=== PATIENT | female | born 1940 | race Two or more races ===

== ENCOUNTER 2023-02-09 16:15 | Inpatient (IN) ==
--- NOTE | 2023-02-09 16:21 | ED Triage Note ---
Date of Service February 09, 2023 History of Present Illness This patient was briefly evaluated while in triage. An abbreviated physical exam was performed. This patient is a 83-year-old Female who presents to the ED for evaluation of []. yesterday-cough and congestion no fevers concerns for wheezing today-"it settled in her chest" vaccinated for flu and covid no testing was visiting sister in [place] on Monday Physical Exam GENERAL: NAD CARDIOVASCULAR: RRR RESPIRATORY: few scattered wheezes Initial orders for labs and / or imaging were placed and patient was placed in the waiting area until a bed is available. Please see further documentation for the full ED course.
[2023-02-09] MEDS ORDERED: ALBUT/IPRATROP 3MG/0.5MG NEB 3 ML VIAL NEB STA (17:25)
--- NOTE | 2023-02-09 17:25 | Emergency Department Note ---
History of Present Illness General Chief complaint: Congestion Stated complaint: COUGH,CONGESTION,WHEEZING, Time Seen by Provider: 02/09/23 17:09 History of Present Illness Provider complaint: Cough congestion wheezing 83-year-old female presents emergency department for cough congestion wheezing. Son at bedside reports symptoms began yesterday. No fevers. No hemoptysis. Mild chest pain difficulty breathing. No chest pressure. No recent travel. No exogenous hormone usage. No history of CHF. No recent trauma or surgeries. Home Medications Medication Instructions Recorded Confirmed Type aspirin 81 mg tablet,delayed 81 mg PO QAM 02/09/23 02/09/23 History release atorvastatin 10 mg tablet 10 mg PO HS 02/09/23 02/09/23 History calcium carbonate 600 mg-vitamin 1 tab PO BID 02/09/23 02/09/23 History D3 10 mcg (400 unit) tablet (Calcium 600 + D(3)) carvedilol 12.5 mg tablet 12.5 mg PO BIDM 02/09/23 02/09/23 History denosumab 60 mg/mL subcutaneous 60 mg subcut .[id number] 02/09/23 02/09/23 History syringe (Prolia) diltiazem HCl 60 mg tablet 60 mg PO BID 02/09/23 02/09/23 History dorzolamide 22.3 mg-timolol 6.8 1 drp OPB BID 02/09/23 02/09/23 History mg/mL eye drops escitalopram oxalate 10 mg tablet 10 mg PO QAM 02/09/23 02/09/23 History hydrochlorothiazide 25 mg tablet 25 mg PO QAM 02/09/23 02/09/23 History latanoprost 0.005 % eye drops 1 drp OPB HS 02/09/23 02/09/23 History losartan 100 mg tablet 100 mg PO HS 02/09/23 02/09/23 History metformin 500 mg tablet See Rx Instructions .Route .COMPLEX 02/09/23 02/09/23 History omeprazole 20 mg capsule,delayed 20 mg PO QAM 02/09/23 02/09/23 History release potassium chloride 10 mEq 10 meq PO BID 02/09/23 02/09/23 History tablet,extended release Allergies Allergy/AdvReac Type Severity Reaction Status Date / Time Penicillins Allergy Intermediate Hives Verified 02/09/23 19:03 Past Med/Surg History Medical History Anxiety GERD (gastroesophageal reflux disease) Hyperlipidemia Hypertension associated with type 2 diabetes mellitus No pertinent family history Type 2 diabetes mellitus Surgical History No pertinent past surgical history Social History Smoking Status: Never smoker Hx Alcohol Use: Yes Alcohol type: wine Hx Substance Use: No Preferred Language: Occitan [employer] As[employer]er Required: No Beliefs That Will Affect Care: None Current Living Situation: Family Current Living Situation Comment: Lives with daughter Feels Safe at Home: Yes Assistive Devices: Denture - Upper, Denture - Lower and Glasses Physical Exam Vital Signs Vital Signs - 24 hr 02/09/23 16:19 02/09/23 17:33 02/09/23 17:48 Temperature 36.8 C Temperature Source Temporal Artery Scan Pulse Rate 83 80 Pulse Rate [Apical] 88 Pulse Rhythm Regular Pulse Rhythm [Apical] Regular Respiratory Rate 20 18 Respiratory Effort / Characteristics Non-Labored Spontaneous Non-Labored Spontaneous Respiratory Depth Normal Normal Respiratory Pattern Regular Blood Pressure 228/109 H Blood Pressure [Right Arm] 236/87 H Blood Pressure Mean 148 Blood Pressure Mean [Right Arm] 136 Blood Pressure Position [Right Arm] Lying Pulse Oximetry 97 95 Oxygen Delivery Method Room Air Sepsis Recent Fever Within 48 Hours No Sepsis New/Unexplained Change in Mental Status No Sepsis Action Taken by Nursing No Action Required Physical Exam GENERAL: She is oriented to person, place, and time. She appears well-developed and well-nourished. HENT: Exam performed. -Head: Normocephalic and atraumatic. -Right Ear: External ear normal. No mastoid erythema -Left Ear: External ear normal. No mastoid erythema EYES: Conjunctivae and EOM are normal. Right eye exhibits no discharge. Left eye exhibits no discharge. No scleral icterus. NECK: Normal range of motion. Neck supple. No JVD present. No rigidity. No tracheal deviation and normal range of motion present. CV: Normal rate, regular rhythm, normal heart sounds and intact distal pulses. Palpable radial pulses bue. PULM/CHEST: Wheezing bilaterally right-sided chest greater than left-sided chest ABD: The abdomen is soft. She has no distension. There is no tenderness. There is no rebound, no guarding. LYMPH: No cervical adenopathy. NEURO: Motor and sensation grossly intact. SKIN: Skin is warm and dry. She is not diaphoretic. PSYCH: She has a normal mood and affect. Behavior is normal. Judgment and thought content normal. Course Course 1708: The patient was evaluated in room A9. A complete history and physical exam was performed Cardiac monitoring: An order was placed for continuous cardiac monitoring. The monitor shows a rate of 80 with sinus rhythm interpreted by me 1930: Vital signs stable. Status post 1 DuoNeb the patient is still having wheezing. Labs show potassium of 3. Imaging shows fluid overloaded. BNP elevated. Patient reportedly has no history of CHF per the son at bedside. Patient will be admitted for CHF new onset Lasix 40 mg ordered for the patient after potassium was repleted in the emergency department. Administered Medications Atorvastatin Calcium (Atorvastatin 10 Mg Tab) 10 mg PO HS EDUARD Stop: 03/11/23 21:57 Last Admin: 02/09/23 22:43 Dose: 10 mg Documented By: CHARO Calcium/Vitamin D (Calcium 600mg + Vit D 400 Iu Tab) 1 tab PO BID EDUARD Stop: 03/11/23 21:57 Last Admin: 02/09/23 22:43 Dose: 1 tab Documented By: CHARO Losartan Potassium (Losartan Potassium 50 Mg Tab) 100 mg PO HS EDUARD Stop: 03/11/23 21:57 Last Admin: 02/09/23 22:36 Dose: 100 mg Documented By: CHARO Discontinued Medications Albuterol (Albut/Ipratrop 3mg/0.5mg Neb 3 Ml Vial) 3 ml NEB NOW STA; Protocol Stop: 02/09/23 17:26 Last Admin: 02/09/23 17:49 Dose: 3 ml Documented By: YULISA Carvedilol (Carvedilol 12.5 Mg Tab) 12.5 mg PO NOW ONE Stop: 02/09/23 20:38 Last Admin: 02/09/23 20:59 Dose: 12.5 mg Documented By: KAIDEN Diltiazem HCl (Diltiazem Hcl 60 Mg Tab) 60 mg PO NOW STA Stop: 02/09/23 20:46 Last Admin: 02/09/23 21:34 Dose: 60 mg Documented By: KAIDEN Furosemide (Furosemide 40 Mg/4 Ml Vial) 40 mg IV ONE ONE Stop: 02/09/23 19:27 Last Admin: 02/09/23 19:42 Dose: 40 mg Documented By: KAIDEN Sodium Nitroprusside 50 mg/ (Dextrose) 502 mls @ 8.66 mls/hr IV .Q24H EDUARD; Protocol Stop: 03/11/23 21:44 Last Admin: 02/09/23 22:56 Dose: Not Given Documented By: ARLET Losartan Potassium (Losartan Potassium 50 Mg Tab) 100 mg PO NOW STA Stop: 02/09/23 20:18 Last Admin: 02/09/23 20:59 Dose: Not Given Documented By: KAIDEN Nitroglycerin (Nitroglycerin 2% Ointment 30gm Tube) 0.5 inch EXT NOW ONE Stop: 02/09/23 22:26 Last Admin: 02/09/23 22:43 Dose: 0.5 inch Documented By: CHARO Potassium Chloride (Potassium Chloride 10 Meq Tabcr) 40 meq PO NOW STA Stop: 02/09/23 19:27 Last Admin: 02/09/23 19:42 Dose: 40 meq Documented By: KAIDEN Medical Decision Making Laboratory Data Attestation: I reviewed the patient's lab results. 02/09/23 17:33 02/09/23 17:34 Lab Results 02/09/23 02/09/23 02/09/23 Range/Units 17:33 17:33 17:33 WBC 9.94 (4.8-10.8) K/ul RBC 4.82 (4.20-5.40) M/uL Hgb 12.6 (12.0-16.0) g/dl Hct 37.7 (37.0-47.0) % MCV 78.2 L (80.0-100.0) fL MCH 26.1 (25.0-34.0) pg MCHC 33.4 (32.0-36.0) g/dL RDW Std Deviation 45.1 (36.4-46.3) fL RDW Coeff of Alanna 16.0 H (11.5-14.5) % Plt Count 194 (130-400) K/uL MPV 13.0 H (9.4-12.4) fL Immature Gran % (Auto) 0.3 % Neut % (Auto) 69.1 % Lymph % (Auto) 18.0 % [place] % (Auto) 10.8 % Eos % (Auto) 1.3 % Baso % (Auto) 0.5 % Neut # (Auto) 6.87 H (1.40-6.50) K/uL Lymph # (Auto) 1.79 (1.2-3.4) K/uL [place] # (Auto) 1.07 H (0.11-0.59) K/uL Eos # (Auto) 0.13 (0-0.50) K/uL Baso # (Auto) 0.05 (0-0.2) K/uL Immature Gran # (Auto) 0.03 (0.01-0.20) K/uL D-Dimer (0-500) ug/L FEU VBG pH (7.36-7.41) VBG pCO2 (38-50) mmHg VBG pO2 mmHg VBG HCO3 mmol/L VBG O2 Saturation % VBG Base Excess mEq/L Sodium (136-145) mmol/L Potassium (3.5-5.1) mmol/L Chloride (98-107) mmol/L Carbon Dioxide (21-32) mmol/L Anion Gap (3-11) BUN (6-23) mg/dl Creatinine (0.6-1.2) mg/dl Est Cr Clr Drug Dosing ml/min Est GFR ( Amer) ml/min Est GFR (Non-Af Amer) ml/min BUN/Creatinine Ratio (10-20) Glucose (70-99(Fasting)) mg/dl Calcium (8.6-10.3) mg/dl Phosphorus (2.5-4.9) mg/dl Magnesium (1.7-2.4) mg/dl Troponin I High Sens Cancelled B-Natriuretic Peptide 141 H (0-100) pg/ml POC Urine pH (4.5-7.5) POC Urine Protein (Negative) POC Ur Glucose (UA) (Normal) POC Urine Ketones (Negative) POC Urine Blood (Negative) POC Urine Nitrite (Negative) POC Urine Bilirubin (Negative) POC Urine Urobilinogen (Normal) POC U Leukocyte Esteras (Negative) SARS-CoV-2 (PCR) (Negative) Influenza Type A (PCR) (Neg) Influenza Type B (PCR) (Neg) RSV (RT-PCR) (Neg) 02/09/23 02/09/23 02/09/23 Range/Units 17:34 17:34 17:51 WBC (4.8-10.8) K/ul RBC (4.20-5.40) M/uL Hgb (12.0-16.0) g/dl Hct (37.0-47.0) % MCV (80.0-100.0) fL MCH (25.0-34.0) pg MCHC (32.0-36.0) g/dL RDW Std Deviation (36.4-46.3) fL RDW Coeff of Alanna (11.5-14.5) % Plt Count (130-400) K/uL MPV (9.4-12.4) fL Immature Gran % (Auto) % Neut % (Auto) % Lymph % (Auto) % [place] % (Auto) % Eos % (Auto) % Baso % (Auto) % Neut # (Auto) (1.40-6.50) K/uL Lymph # (Auto) (1.2-3.4) K/uL [place] # (Auto) (0.11-0.59) K/uL Eos # (Auto) (0-0.50) K/uL Baso # (Auto) (0-0.2) K/uL Immature Gran # (Auto) (0.01-0.20) K/uL D-Dimer 370 (0-500) ug/L FEU VBG pH 7.46 H (7.36-7.41) VBG pCO2 48 (38-50) mmHg VBG pO2 31 mmHg VBG HCO3 34 mmol/L VBG O2 Saturation < 60.0 % VBG Base Excess 8.8 mEq/L Sodium 138 (136-145) mmol/L Potassium 3.0 L (3.5-5.1) mmol/L Chloride 96 L (98-107) mmol/L Carbon Dioxide 32 (21-32) mmol/L Anion Gap 10 (3-11) BUN 11 (6-23) mg/dl Creatinine 0.61 (0.6-1.2) mg/dl Est Cr Clr Drug Dosing 53.5 ml/min Est GFR ( Amer) 95.8 ml/min Est GFR (Non-Af Amer) 82.7 ml/min BUN/Creatinine Ratio 18.0 (10-20) Glucose 156 H (70-99(Fasting)) mg/dl Calcium 9.4 (8.6-10.3) mg/dl Phosphorus 2.4 L (2.5-4.9) mg/dl Magnesium 1.4 L (1.7-2.4) mg/dl Troponin I High Sens 8.8 B-Natriuretic Peptide (0-100) pg/ml POC Urine pH (4.5-7.5) POC Urine Protein (Negative) POC Ur Glucose (UA) (Normal) POC Urine Ketones (Negative) POC Urine Blood (Negative) POC Urine Nitrite (Negative) POC Urine Bilirubin (Negative) POC Urine Urobilinogen (Normal) POC U Leukocyte Esteras (Negative) SARS-CoV-2 (PCR) (Negative) Influenza Type A (PCR) (Neg) Influenza Type B (PCR) (Neg) RSV (RT-PCR) (Neg) 02/09/23 02/09/23 02/09/23 Range/Units 17:53 18:09 20:15 WBC (4.8-10.8) K/ul RBC (4.20-5.40) M/uL Hgb (12.0-16.0) g/dl Hct (37.0-47.0) % MCV (80.0-100.0) fL MCH (25.0-34.0) pg MCHC (32.0-36.0) g/dL RDW Std Deviation (36.4-46.3) fL RDW Coeff of Alanna (11.5-14.5) % Plt Count (130-400) K/uL MPV (9.4-12.4) fL Immature Gran % (Auto) % Neut % (Auto) % Lymph % (Auto) % [place] % (Auto) % Eos % (Auto) % Baso % (Auto) % Neut # (Auto) (1.40-6.50) K/uL Lymph # (Auto) (1.2-3.4) K/uL [place] # (Auto) (0.11-0.59) K/uL Eos # (Auto) (0-0.50) K/uL Baso # (Auto) (0-0.2) K/uL Immature Gran # (Auto) (0.01-0.20) K/uL D-Dimer (0-500) ug/L FEU VBG pH (7.36-7.41) VBG pCO2 (38-50) mmHg VBG pO2 mmHg VBG HCO3 mmol/L VBG O2 Saturation % VBG Base Excess mEq/L Sodium (136-145) mmol/L Potassium (3.5-5.1) mmol/L Chloride (98-107) mmol/L Carbon Dioxide (21-32) mmol/L Anion Gap (3-11) BUN (6-23) mg/dl Creatinine (0.6-1.2) mg/dl Est Cr Clr Drug Dosing ml/min Est GFR ( Amer) ml/min Est GFR (Non-Af Amer) ml/min BUN/Creatinine Ratio (10-20) Glucose (70-99(Fasting)) mg/dl Calcium (8.6-10.3) mg/dl Phosphorus Cancelled (2.5-4.9) mg/dl Magnesium Cancelled (1.7-2.4) mg/dl Troponin I High Sens B-Natriuretic Peptide (0-100) pg/ml POC Urine pH 8 H (4.5-7.5) POC Urine Protein 3+ H (Negative) POC Ur Glucose (UA) Normal (Normal) POC Urine Ketones Negative (Negative) POC Urine Blood Negative (Negative) POC Urine Nitrite Negative (Negative) POC Urine Bilirubin Negative (Negative) POC Urine Urobilinogen Normal (Normal) POC U Leukocyte Esteras 1+ H (Negative) SARS-CoV-2 (PCR) NEGATIVE (Negative) Influenza Type A (PCR) Negative (Neg) Influenza Type B (PCR) Negative (Neg) RSV (RT-PCR) Negative (Neg) Imaging Data Attestation: I personally reviewed and interpreted this imaging study as follows: My Impression: Cardiomegaly with cephalization Radiologist's Impression: Chest X-Ray 02/09/23 16:22 XR chest 1V portable HISTORY: 83 years-old Female cough and sheezing acute cough COMPARISON: None TECHNIQUE: AP view of the chest FINDINGS: Cardiac silhouette is enlarged. Pulmonary vascular congestion. Atherosclerosis of the aorta. No pneumothorax, large pleural effusion or overt pulmonary edema. Degenerative changes of the shoulders and spine. IMPRESSION: Cardiomegaly with pulmonary vascular congestion. ACT 112: Negative or not required by law. The above report was generated using voice recognition software. It may contain grammatical, syntax or spelling errors. Electronically signed by: Arnol Gonzalez M.D. 02/09/2023 5:23 PM ECG Data Attestation: I personally reviewed and interpreted this ECG as follows: Additional Comments: EKG #1 at 1722: Sinus rhythm with a rate of 83. NE 232 QRS 126 QTc 491. Right bundle branch block present. EKG #2 at 1747: Sinus rhythm with rate of 84. NE 208 QRS 124 QTc 501. Right bundle branch block present. No significant change from the EKG at 1722 MDM Narrative 1709: The patient was evaluated in room A9. A complete history and physical exam was performed Cardiac monitoring: An order was placed for continuous cardiac monitoring. The monitor shows a rate of 80 with sinus rhythm interpreted by me 1930: Vital signs stable. Status post 1 DuoNeb the patient is still having wheezing. Labs show potassium of 3. Imaging shows fluid overloaded. BNP elevated. Patient reportedly has no history of CHF per the son at bedside. Patient will be admitted for CHF new onset Lasix 40 mg ordered for the patient after potassium was repleted in the emergency department. Impression & Plan CHF (congestive heart failure) Discharge Plan Visit Data Chief Complaint: Congestion Stated Complaint: COUGH,CONGESTION,WHEEZING, ED Provider: John Paul Amaya Discharge Problem: CHF (congestive heart failure) Patient Disposition: Admitted As Inpatient Discharge Instructions Interventions: ED Discharge Assessment Last Done: 02/09/23 22:05
--- NOTE | 2023-02-09 17:25 | XRay Report ---
XR chest 1V portable HISTORY: 83 years-old Female cough and sheezing acute cough COMPARISON: None TECHNIQUE: AP view of the chest FINDINGS: Cardiac silhouette is enlarged. Pulmonary vascular congestion. Atherosclerosis of the aorta. No pneum othorax, large pleural effusion or overt pulmonary edema. Degenerative changes of the shoulders and s pine. IMPRESSION: Cardiomegaly with pulmonary vascular congestion. ACT 112: Negative or not required by law. The above report was generated using voice recognition software. It may contain grammatical, syntax o r spelling errors. Electronically signed by: Arnol Gonzalez M.D. 02/09/2023 5:23 PM
[2023-02-09 18:09] LABS: Base Excess VBG 8.8 mEq/L; HCO3 VBG 34 mmol/L; Oxygen Saturation VBG < 60.0 %; PCO2 VBG 48 mmHg (38-50); PO2 VBG 31 mmHg; pH VBG 7.46 (7.36-7.41)
[2023-02-09 18:18] LABS: POC Urine Bilirubin Negative (Negative); POC Urine Blood Negative (Negative); POC Urine Glucose Normal (Normal); POC Urine Ketones Negative (Negative); POC Urine Leukocytes 1+ (Negative); POC Urine Nitrite Negative (Negative); POC Urine Protein 3+ (Negative); POC Urine Urobilinogen Normal (Normal); POC Urine pH 8 (4.5-7.5)
[2023-02-09 18:19] LABS: Calcium 9.4 mg/dl (8.6-10.3)
[2023-02-09 18:24] LABS: Creatinine Clr Calc Pharmacy 53.5 ml/min; Est GFR (African American) 95.8 ml/min; Est GFR (Non-African American) 82.7 ml/min
[2023-02-09 18:29] LABS: Troponin I High Sensitivity 8.8 pg/ml (0-14)
[2023-02-09 18:39] LABS: Basophils # (auto) 0.05 K/uL (0-0.2); Basophils % (auto) 0.5 %; Eosinophils # (auto) 0.13 K/uL (0-0.50); Eosinophils % (auto) 1.3 %; Hematocrit (blood only) 37.7 % (37.0-47.0); Hemoglobin 12.6 g/dl (12.0-16.0); Immature Granulocytes # (auto) 0.03 K/uL (0.01-0.20); Immature Granulocytes % (auto) 0.3 %; Lymphocytes # (auto) 1.79 K/uL (1.2-3.4); Mean Corpuscular Hemoglobin 26.1 pg (25.0-34.0); Mean Corpuscular Hgb Conc 33.4 g/dL (32.0-36.0); Mean Corpuscular Volume 78.2 fL (80.0-100.0); Monocytes # (auto) 1.07 K/uL (0.11-0.59); Monocytes % (auto) 10.8 %; Neutrophils # (auto) 6.87 K/uL (1.40-6.50); Neutrophils % (auto) 69.1 %; Platelet Count 194 K/uL (130-400); RDW Standard Deviation 45.1 fL (36.4-46.3); Red Blood Count 4.82 M/uL (4.20-5.40); White Blood Count 9.94 K/ul (4.8-10.8)
[2023-02-09 19:13] LABS: Influenza A virus by PCR Negative (Neg); Influenza B virus by PCR Negative (Neg); RSV by PCR Negative (Neg); SARS CoV2 RNA(COVID-19) Ceph NEGATIVE (Negative)
[2023-02-09] MEDS ORDERED: POTASSIUM CHLORIDE 10 MEQ TABCR PO STA (19:26)
[2023-02-09] MEDS ORDERED: FUROSEMIDE 40 MG/4 ML VIAL IV ONE (19:26)
[2023-02-09] MEDS ORDERED: LOSARTAN POTASSIUM 50 MG TAB PO STA (20:17)
[2023-02-09 20:36] LABS: D Dimer 370 ug/L FEU (0-500)
[2023-02-09] MEDS ORDERED: carvediloL 12.5 MG TAB PO ONE (20:37)
[2023-02-09] MEDS ORDERED: dilTIAZem HCl 60 MG TAB PO STA (20:45)
--- NOTE | 2023-02-09 21:03 | History & Physical Report ---
Date of Service February 09, 2023 Assessment & Plan (1) Pulmonary vascular congestion: Plan: 83F with past medical history of hypertension, hyperlipidemia, GERD, anxiety, who presents to the hospital with an acute episode of congestion. Now admitted to the hospital for management of pulmonary vascular congestion and hypokalemia. Pulmonary vascular congestion -Discovered (with cardiomegaly) on CXR in the ED. Patient denies prior history of CHF (she is not from the area) or COPD. -BNP of 141 on admission. D-. High-sensitivity troponin negative. -Now s/p IV Lasix 40 mg x1 dose prior to admission. * [facility] * Continue IV Lasix 40 mg daily Hypertension -Chronic. Managed on HCTZ, losartan, Coreg, diltiazem at home. -S/p Coreg, diltiazem, Nitro-Bid 2% ointment on admission. -Per protocol, BP reduced ~20% in the first hour. Titrate to goal of 15% further reduction (175 SBP) over the next 23 hours. * Continue losartan, Coreg, diltiazem in the a.m. * Hold HCTZ on account of hypokalemia * Trend vitals Hypokalemia -Patient takes p.o. KCl 10 mEq daily. -K+ 3.0 on admission. Now s/p IV KCl 40 mEq x 1 * Trend BMP, magnesium. Replete as needed. * Holding HCTZ, as above. Type 2 diabetes -Chronic. Managed on metformin. * SSI per protocol * Hold home metformin Hyperlipidemia -Chronic. Managed on Lipitor. * Continue atorvastatin Anxiety -Chronic. Managed on escitalopram 10 mg. * Continue escitalopram GERD -Chronic. On omeprazole 20 mg. * P.o. Protonix. Code: Full code Dispo: Med-Surg telemetry FEN/GI: Heart healthy DVT Prophylaxis: Aspirin 81 mg PT/OT: Consults: None (2) Hypertension associated with type 2 diabetes mellitus: (3) Type 2 diabetes mellitus: (4) Hyperlipidemia: (5) Anxiety: (6) GERD (gastroesophageal reflux disease): History of Present Illness Primary Care Provider: NO PCP Fifi is an 83-year-old woman with a history of hypertension, hyperlipidemia, anxiety, GERD, and osteoporosis who presents today with acute cough that started yesterday with worsening shortness of breath today. ROS + chest wall discomfort. She has no prior history of COPD or CHF. In the ED, she was hypertensive to 200s systolic. Labs notable for hypokalemia at 3.0. BNP of 141. CXR revealed cardiomegaly with pulmonary vascular congestion. EKG showed (per my read) ST depressions from V3-V6. She received a dose of IV Lasix 40 mg, a dose of DuoNeb and IV KCl x40 mEq in the ED before admission. On admission, she reports an improvement in her shortness of breath and chest discomfort. She denies headache, chest pain/radiation of chest discomfort, fever, recent illness, nausea, or abdominal pain. Her son, who is at bedside, reports patient's PCP is in [place], near [place]. Allergies Allergy/AdvReac Type Severity Reaction Status Date / Time Penicillins Allergy Intermediate Hives Verified 02/09/23 19:03 Home Medications Medication Instructions Recorded Confirmed Type aspirin 81 mg tablet,delayed 81 mg PO QAM 02/09/23 02/09/23 History release atorvastatin 10 mg tablet 10 mg PO HS 02/09/23 02/09/23 History calcium carbonate 600 mg-vitamin 1 tab PO BID 02/09/23 02/09/23 History D3 10 mcg (400 unit) tablet (Calcium 600 + D(3)) carvedilol 12.5 mg tablet 12.5 mg PO BIDM 02/09/23 02/09/23 History denosumab 60 mg/mL subcutaneous 60 mg subcut .[id number] 02/09/23 02/09/23 History syringe (Prolia) dorzolamide 22.3 mg-timolol 6.8 1 drp OPB BID 02/09/23 02/09/23 History mg/mL eye drops escitalopram oxalate 10 mg tablet 10 mg PO QAM 02/09/23 02/09/23 History hydrochlorothiazide 25 mg tablet 25 mg PO QAM 02/09/23 02/09/23 History latanoprost 0.005 % eye drops 1 drp OPB HS 02/09/23 02/09/23 History losartan 100 mg tablet 100 mg PO HS 02/09/23 02/09/23 History metformin 500 mg tablet See Rx Instructions .Route .COMPLEX 02/09/23 02/09/23 History omeprazole 20 mg capsule,delayed 20 mg PO QAM 02/09/23 02/09/23 History release potassium chloride 10 mEq 10 meq PO BID 02/09/23 02/09/23 History tablet,extended release albuterol sulfate 1.25 mg/3 mL 1.25 mg (3 mL) inhalation Q8H PRN 02/11/23 Rx solution for nebulization bronchospasm 10 days #75 mL diltiazem HCl 180 mg 180 mg PO QAM 30 days #30 caps 02/11/23 Rx capsule,extended release 24 hr Past Med/Surg History Medical History Anxiety GERD (gastroesophageal reflux disease) Hyperlipidemia Hypertension associated with type 2 diabetes mellitus No pertinent family history Type 2 diabetes mellitus Surgical History No pertinent past surgical history Social History Smoking Status: Never smoker Hx Alcohol Use: Yes Alcohol type: wine Hx Substance Use: No Preferred Language: [place] Ticket Puller Required: No Beliefs That Will Affect Care: None Current Living Situation: Family Current Living Situation Comment: Lives with daughter Feels Safe at Home: Yes Assistive Devices: Denture - Upper, Denture - Lower and Glasses Review of Systems Review of Systems: All systems reviewed & are unremarkable except as noted in HPI & below Physical Exam Physical Exam: General: No acute distress HEENT: PERRLA. Normal conjunctiva, anicteric sclera. Oropharynx normal. Respiratory: Normal respiratory effort. End expiratory wheezes heard on auscultation. No crackles or rhonchi heard. Cardiovascular: RRR without murmurs, gallops, or rubs. Mild left LE edema. GI: Soft abdomen with normal bowel sounds heard on auscultation. Nontender x4 quadrants Neuro: Alert and oriented x3. Results & Data Results & Data Vital Signs (Past 12 Hours) Vital Signs Temp Pulse Pulse Resp BP BP Pulse Ox 02/09/23 17:48 88 18 236/87 H 95 02/09/23 17:33 80 02/09/23 16:19 36.8 C 83 20 228/109 H 97 O2 Del Method 02/09/23 17:48 02/09/23 17:33 02/09/23 16:19 Room Air Code Status & VTE Plan VTE Prophylaxis Plan VTE Prophylaxis will be ordered: Yes Supervising Physician Co-Signing Physician Notes Attending addendum: I have physically seen this patient, have supervised the medical residents activities, and agree with the H&P unless as otherwise noted. Assessment and Plan: CHF exacerbation/abnormal EKG/hypertension/hypokalemia- The patient will be admitted to telemetry for serial cardiac enzymes, serial EKG's, cardiac rhythm monitoring and a 2-D echocardiogram with Dopplers. Given Lasix 40 mg IV in ED Given Klor-Con 40 mEq by the ED, give another 40 mEq now Lasix 40 mg IV every morning Continue losartan, diltiazem Hold HCTZ due to hypokalemia Placed on Nitropaste 1 inch to anterior chest wall every 6 hours Follow serial BMP and magnesium levels Diabetes mellitus- Hold metformin Place on Accu-Cheks with NovoLog SSI Check hemoglobin A1c Hyperlipidemia- Continue atorvastatin Check a fasting lipid pane anxiety- Continue escitalopram GERD- Change omeprazole to pantoprazole per formulary interchange Remaining orders and notations as noted l Resident Activity Tracking Resident Involvement: Resident Care Provided Care Provided: Adult Hospital Medicine
[2023-02-09 21:33] LABS: Magnesium 1.4 mg/dl (1.7-2.4)
[2023-02-09] MEDS ORDERED: STAT IV Infusion **Titration per Protocol STA (21:34)
[2023-02-09 21:38] LABS: Phosphorus 2.4 mg/dl (2.5-4.9)
[2023-02-09] MEDS ORDERED: NITROPRUSSIDE SODIUM 50 MG in DEXTROSE 5% 500 ML IV SCH (21:45)
[2023-02-09] MEDS ORDERED: NITROGLYCERIN 2% OINTMENT 30GM TUBE EXT ONE (22:25)
[2023-02-09] MEDS: LOSARTAN POTASSIUM 50 MG TAB PO SCH (22:36)
[2023-02-09] MEDS: ATORVASTATIN 10 MG TAB PO SCH (22:43)
[2023-02-09] MEDS: CALCIUM 600MG + VIT D 400 IU TAB PO SCH (22:43)
[2023-02-09] MEDS ORDERED: CARBOHYDRATES FOR HYPOGLYCEMIA PO PRN (23:49)
[2023-02-09] MEDS ORDERED: GLUCAGON FOR INJ 1 MG VIAL SQ PRN (23:49)
[2023-02-09] MEDS ORDERED: GLUCOSE 10 TAB/TUBE PO PRN (23:49)
[2023-02-09] MEDS ORDERED: DEXTROSE 50% 50 ML SYRINGE IV PRN (23:49)
[2023-02-09] MEDS ORDERED: GLUCOSE 40% GEL 15 GM TUBE PO PRN (23:49)
[2023-02-10] MEDS: ACETAMINOPHEN 325 MG TAB PO PRN ×4 (00:16→20:55)
[2023-02-10 06:39] LABS: Basophils # (auto) 0.05 K/uL (0-0.2); Basophils % (auto) 0.6 %; Eosinophils # (auto) 0.12 K/uL (0-0.50); Eosinophils % (auto) 1.4 %; Hematocrit (blood only) 34.5 % (37.0-47.0); Hemoglobin 11.7 g/dl (12.0-16.0); Immature Granulocytes # (auto) 0.03 K/uL (0.01-0.20); Immature Granulocytes % (auto) 0.3 %; Lymphocytes # (auto) 1.82 K/uL (1.2-3.4); Lymphocytes % (auto) 20.8 %; Mean Corpuscular Hemoglobin 26.2 pg (25.0-34.0); Mean Corpuscular Hgb Conc 33.9 g/dL (32.0-36.0); Mean Corpuscular Volume 77.4 fL (80.0-100.0); Monocytes % (auto) 13.7 %; Neutrophils # (auto) 5.51 K/uL (1.40-6.50); Neutrophils % (auto) 63.2 %; Platelet Count 174 K/uL (130-400); RDW Standard Deviation 44.7 fL (36.4-46.3); Red Blood Count 4.46 M/uL (4.20-5.40); White Blood Count 8.73 K/ul (4.8-10.8)
[2023-02-10 06:55] LABS: Calcium 8.7 mg/dl (8.6-10.3); Creatinine Clr Calc Pharmacy 50.9 ml/min; Est GFR (African American) 97.4 ml/min; Magnesium 1.3 mg/dl (1.7-2.4); Phosphorus 3.3 mg/dl (2.5-4.9); Potassium 2.9 mmol/L (3.5-5.1)
[2023-02-10] MEDS: ESCITALOPRAM OXALATE 10 MG TAB PO SCH (08:02)
[2023-02-10] MEDS: PANTOprazole 40 MG TAB PO SCH (08:02)
[2023-02-10] MEDS: CALCIUM 600MG + VIT D 400 IU TAB PO SCH ×2 (08:02→20:43)
[2023-02-10] MEDS: ASPIRIN 81 MG ECTAB PO SCH (08:02)
[2023-02-10] MEDS: carvediloL 12.5 MG TAB PO SCH ×2 (08:03→16:59)
--- NOTE | 2023-02-10 08:16 | Hospitalist Progress Note ---
Date of Service February 10, 2023 Assessment & Plan (1) Pulmonary vascular congestion: Plan: Acute respiratory insufficiency likely due to rhinovirus pneumonitissupportive care at this time acute congestive heart failure undetermined type, new to our system so no old r ecords -BNP of 141 on admission. [id number]. High-sensitivity troponin negative. -improved after lasix administration, stopped after 2 doses given rhinovirus etiology Hypertension -Chronic. unstable consider hypertensive urgency home meds HCTZ, losartan, Coreg, diltiazem Places at risk for heart disease Continue losartan, Coreg, diltiazem , increased diltiazem dose on 02/11/23 Acute electrolyte abnormalities, replete * Holding HCTZ, as above. Type 2 diabetes-Chronic. Managed on metformin currently on hold * SSI per protocol * Hold home metformin Hyperlipidemia-Chronic. Managed on Lipitor. * Continue atorvastatin Anxiety -Chronic. Managed on escitalopram 10 mg. (2) Hypertension associated with type 2 diabetes mellitus: (3) Type 2 diabetes mellitus: (4) Hyperlipidemia: (5) Anxiety: (6) GERD (gastroesophageal reflux disease): Admission and Anticipated Discharge Date Admission Date: February 09, 2023 Subjective pt feels improved but still with coughing paroxysms and some wheezing, has been around ill contacts Physical Exam Physical Exam: pleasant and in no distress non productive cough, lungs coarse cardiac regular with DEVON Results & Data Results & Data Vital Signs (Past 12 Hours) Vital Signs Temp Pulse Pulse Resp BP BP Pulse Ox 02/10/23 07:55 100.8 F H 82 18 192/83 H 93 02/10/23 07:23 71 02/10/23 03:33 99.5 F 71 18 170/84 H 90 02/10/23 00:00 02/09/23 22:28 81 02/09/23 21:49 87 02/09/23 23:51 100.6 F H 77 20 191/82 H 93 02/09/23 23:25 88 18 159/72 H 02/09/23 22:05 82 18 207/89 H 92 02/09/23 22:03 02/09/23 22:03 98.8 F 88 18 223/69 H 92 O2 Del Method 02/10/23 07:55 Room Air 02/10/23 07:23 02/10/23 03:33 Room Air 02/10/23 00:00 Room Air 02/09/23 22:28 02/09/23 21:49 02/09/23 23:51 Room Air 02/09/23 23:25 02/09/23 22:05 02/09/23 22:03 Room Air 02/09/23 22:03 Room Air Laboratory Results Reviewed CBC Reviewed PRP Reviewed bio fire PG Care Time/CCT Total # of Minutes Spent Total Time Spent with Patient: Total time spent is greater than 50% in coordination of care (as documented) at patient's floor/unit and/or counseling patient: Coding Level of Care Code 42663 SUB INP/OBS CARE 3/50MIN Diagnoses Pulmonary vascular congestion R09.89 Hypertension associated with type 2 diabetes mellitus E11.59; I15.2 Type 2 diabetes mellitus E11.9 Hyperlipidemia E78.5 Anxiety F41.9 GERD (gastroesophageal reflux disease) K21.9
[2023-02-10] MEDS ORDERED: hydrALAZINE HCL 20 MG/ML VIAL IV PRN (08:17)
[2023-02-10] MEDS: INSULIN ASPART PER UNIT CHARGE SC SCH ×4 (08:47→20:39)
[2023-02-10] MEDS: MAGNESIUM SULFATE / D5W 1 GM/100 ML BAG IV SCH ×2 (08:51→11:03)
[2023-02-10] MEDS: POTASSIUM CHLORIDE / WTR 10 MEQ/100 ML PLCT IV SCH ×3 (08:52→13:07)
[2023-02-10] MEDS ORDERED: dilTIAZem HCl 60 MG TAB PO SCH ×2 (09:00)
[2023-02-10] MEDS ORDERED: FUROSEMIDE 40 MG/4 ML VIAL IV SCH (09:00)
[2023-02-10 09:46] LABS: Adenovirus PCR Not Detected (NotDetected); Bordetella parapertussis PCR Not Detected (NotDetected); Bordetella pertussis PCR Not Detected (NotDetected); Chlamydia pneumoniae PCR Not Detected (NotDetected); Coronavirus 229E PCR Not Detected (NotDetected); Coronavirus CoV-2 (COVID19)PCR Not Detected (NotDetected); Coronavirus HKU1 PCR Not Detected (NotDetected); Coronavirus NL63 PCR Not Detected (NotDetected); Coronavirus OC43PCR Not Detected (NotDetected); Human Metapneumovirus PCR Not Detected (NotDetected); Influenza A PCR Not Detected (NotDetected); Influenza B PCR Not Detected (NotDetected); Mycoplasma pneumoniae PCR Not Detected (NotDetected); Parainfluenza Virus 1 PCR Not Detected (NotDetected); Parainfluenza Virus 2 PCR Not Detected (NotDetected); Parainfluenza Virus 3 PCR Not Detected (NotDetected); Parainfluenza Virus 4 PCR Not Detected (NotDetected); Respiratory Syncytial VirusPCR Not Detected (NotDetected)
[2023-02-10 10:04] LABS: Rhinovirus/Enterovirus PCR DETECTED (NotDetected)
[2023-02-10] MEDS: dilTIAZem HCl 60 MG TAB PO SCH ×2 (14:06→20:43)
--- NOTE | 2023-02-10 14:37 | Electrocardiogram Report ---
Test Reason : Blood Pressure : / mmHG Vent. Rate : 084 BPM Atrial Rate : 084 BPM P-R Int : 208 ms QRS Dur : 124 ms QT Int : 424 ms P-R-T Axes : 062 084 008 degrees QTc Int : 501 ms Poor data quality, interpretation may be adversely affected Normal sinus rhythm Right bundle branch block Abnormal ECG When compared with ECG of 09-FEB-2023 17:22, (unconfirmed) No significant change was found Confirmed by Terrell Palomino ([id number]) on 02/10/2023 2:37:37 PM Referred By: REFERRED SELF Confirmed By:Terrell Palomino
--- NOTE | 2023-02-10 14:37 | Electrocardiogram Report ---
Test Reason : Blood Pressure : / mmHG Vent. Rate : 083 BPM Atrial Rate : 083 BPM P-R Int : 232 ms QRS Dur : 126 ms QT Int : 418 ms P-R-T Axes : 058 086 009 degrees QTc Int : 491 ms Sinus rhythm with 1st degree A-V block Right bundle branch block Abnormal ECG No previous ECGs available Confirmed by Terrell Palomino ([id number]) on 02/10/2023 2:37:32 PM Referred By: REFERRED SELF Confirmed By:Terrell Palomino
[2023-02-10] MEDS ORDERED: ALBUT/IPRATROP 3MG/0.5MG NEB 3 ML VIAL NEB STA (15:29)
[2023-02-10] MEDS: LOSARTAN POTASSIUM 50 MG TAB PO SCH (20:42)
[2023-02-10] MEDS: ATORVASTATIN 10 MG TAB PO SCH (20:43)
[2023-02-10] MEDS ORDERED: LATANOPROST 0.005% OP SOLN 2.5 ML BTL OPB SCH (21:00)
[2023-02-10] MEDS: ALBUT/IPRATROP 3MG/0.5MG NEB 3 ML VIAL NEB PRN (21:02)
[2023-02-11] MEDS: ACETAMINOPHEN 325 MG TAB PO PRN (03:00)
[2023-02-11 06:59] LABS: Basophils # (auto) 0.05 K/uL (0-0.2); Basophils % (auto) 0.7 %; Eosinophils # (auto) 0.11 K/uL (0-0.50); Eosinophils % (auto) 1.6 %; Hematocrit (blood only) 35.4 % (37.0-47.0); Immature Granulocytes # (auto) 0.02 K/uL (0.01-0.20); Immature Granulocytes % (auto) 0.3 %; Lymphocytes # (auto) 2.31 K/uL (1.2-3.4); Lymphocytes % (auto) 32.8 %; Mean Corpuscular Hemoglobin 26.3 pg (25.0-34.0); Mean Corpuscular Hgb Conc 33.9 g/dL (32.0-36.0); Mean Corpuscular Volume 77.6 fL (80.0-100.0); Mean Platelet Volume 13.5 fL (9.4-12.4); Monocytes % (auto) 15.6 %; Neutrophils # (auto) 3.45 K/uL (1.40-6.50); Platelet Count 166 K/uL (130-400); RDW Coefficient of Variation 16.2 % (11.5-14.5); RDW Standard Deviation 45.4 fL (36.4-46.3); Red Blood Count 4.56 M/uL (4.20-5.40); White Blood Count 7.04 K/ul (4.8-10.8)
[2023-02-11 07:17] LABS: BUN Creatinine Ratio 17.9 (10-20); Calcium 8.9 mg/dl (8.6-10.3); Est GFR (African American) 98.5 ml/min; Phosphorus 3.1 mg/dl (2.5-4.9); Potassium 3.1 mmol/L (3.5-5.1)
[2023-02-11] MEDS ORDERED: POTASSIUM CHLORIDE CRTAB 20 MEQ TABCR PO STA (07:34)
[2023-02-11] MEDS: ALBUT/IPRATROP 3MG/0.5MG NEB 3 ML VIAL NEB PRN (07:59)
[2023-02-11] MEDS: INSULIN ASPART PER UNIT CHARGE SC SCH (08:03)
[2023-02-11] MEDS: PANTOprazole 40 MG TAB PO SCH (08:11)
[2023-02-11] MEDS: carvediloL 12.5 MG TAB PO SCH (08:11)
[2023-02-11] MEDS: CALCIUM 600MG + VIT D 400 IU TAB PO SCH (08:11)
[2023-02-11] MEDS: ESCITALOPRAM OXALATE 10 MG TAB PO SCH (08:11)
[2023-02-11] MEDS: ASPIRIN 81 MG ECTAB PO SCH (08:11)
[2023-02-11] MEDS ORDERED: dilTIAZem HCL 180 MG CAPCR PO SCH (09:00)
[2023-02-11] MEDS ORDERED: guaiFENesin 600 MG TABCR PO SCH (11:00)
--- NOTE | 2023-02-11 19:09 | Billing Data ---
Date of Service February 11, 2023 Coding Level of Care Code 45831 INT INP/OBS CARE
--- NOTE | 2023-02-12 10:45 | Discharge Summary ---
Date of Service February 11, 2023 Admission HPI Per Admitting Provider Fifi is an 83-year-old woman with a history of hypertension, hyperlipidemia, anxiety, GERD, and osteoporosis who presents today with acute cough that started yesterday with worsening shortness of breath today. ROS + chest wall discomfort. She has no prior history of COPD or CHF. In the ED, she was hypertensive to 200s systolic. Labs notable for hypokalemia at 3.0. BNP of 141. CXR revealed cardiomegaly with pulmonary vascular congestion. EKG showed (per my read) ST depressions from V3-V6. She received a dose of IV Lasix 40 mg, a dose of DuoNeb and IV KCl x40 mEq in the ED before admission. On admission, she reports an improvement in her shortness of breath and chest discomfort. She denies headache, chest pain/radiation of chest discomfort, fever, recent illness, nausea, or abdominal pain. Her son, who is at bedside, reports patient's PCP is in [facility] near [place]. Admission Exam Per Admitting Provider General: No acute distress HEENT: PERRLA. Normal conjunctiva, anicteric sclera. Oropharynx normal. Respiratory: Normal respiratory effort. End expiratory wheezes heard on auscultation. No crackles or rhonchi heard. Cardiovascular: RRR without murmurs, gallops, or rubs. Mild left LE edema. GI: Soft abdomen with normal bowel sounds heard on auscultation. Nontender x4 quadrants Neuro: Alert and oriented x3. Principal Diagnosis Pulmonary Vascular Congestion Discharge Exam General Appearance: well-developed, well-nourished older adult woman in no acute distress HEENT: NC/AT. Sclera anicteric. CV: RRR. S1 and S2 appreciated. No murmurs, clicks, gallops or rubs. Lungs: Moving air well - expiratory wheezes in b/l lung hernandez. Patient was able to ambulate in halls with O2 sats remaining above 92%. Skin: warm, dry, and intact Neuro: AAO x 3. No focal deficits. Psych: Appropriate mood and affect. Discharge Data Allergies Allergy/AdvReac Type Severity Reaction Status Date / Time Penicillins Allergy Intermediate Hives Verified 02/09/23 19:03 Consultations 02/09/23 19:27 ED Decision to Admit Stat Hospital Course (1) Pulmonary vascular congestion: Mrs. Cobb is an 83 yo F who was admitted for difficulty breathing. Acute respiratory insufficiency - likely due to rhinovirus pneumonitis (positive biofire on admission) - additionally, patient had evidence of pulmonary vascular congestion on CXR and an elevated BNP on arrival, suggest of acute CHF. No known history of CHF - improved after lasix administration, stopped after 2 doses given rhinovirus etiology - breathing improved with the above. She was sent out with a script for albuterol nebs --> her son has a home neb unit. She was counseled to use on a prn basis. She may also continue to use mucinex - Explained to family that without underlying lung disease and clinical improvement with supportive care only, antibiotics were not necessary Hypokalemia - K ow at 3.1 - oral replacement given - patient is on losartan - repeat K level as outpatient Hypertension -Chronic. unstable consider hypertensive urgency Continue losartan, Coreg, diltiazem , increased diltiazem dose on 02/11/23 Acute electrolyte abnormalities, replete * Holding HCTZ, as above. Type 2 diabetes-Chronic. Managed on metformin currently on hold * SSI per protocol * Hold home metformin Hyperlipidemia-Chronic. Managed on Lipitor. * Continue atorvastatin Anxiety -Chronic. Managed on escitalopram 10 mg. Total Time Total Time Spent Total Time Spent (In Minutes): 33 Total Time Includes: Examination of the Patient, Discharge Planning and Medication Reconciliation Discharge Plan Discharge Items Patient Disposition: Home - Self-Care Reason For Visit: COUGH, CONGESTION Discharge Diagnosis: Rhinovirus Infection Activity: Resume your previous activity Non-emergency contact: Primary Care Provider Call non-emergency contact if: you have any medication questions and your symptoms worsen Follow-up/Referrals: Arianna Steen MD [Physician] - PCP,NO [Primary Care Provider] - Diet: Regular Addtl Attending Provider Instructions: You were hospitalized at [facility] for difficulty breathing. On arrival you tested positive for rhinovirus, a common virus that infects the respiratory tract. This is likely the root of your troubles. A CXR showed no evidence of a bacterial pneumonia, thus no antibiotics were necessary. We did treat you with supportive care, including nebulizer treatments and mucinex (which helps thin your mucous out and makes it easier to cough up). Additionally, your chest xray showed some evidence extra fluid in your lungs -- you were treated with a medication known as lasix to reduce this fluid. This not is not a medication you need to take a a regular basis moving forward. Your breathing improved while under our care. Please use your nebulizer at home on an as needed basis -- (ie for wheezing or chest tightness). Your need for this should lessen over the next few days as your lungs recover. You may also continue to take Mucinex (available over the counter). Pending Studies at Discharge: No Stand-Alone Forms: My [facility], Smoking Cessation Medications and DC Order Prescriptions: New diltiazem HCl 180 mg Capsule,Extended Release 24hr 180 mg PO QAM 30 Days Qty: 30 0RF albuterol sulfate 1.25 mg/3 mL solution for nebulization 1.25 mg inhalation Q8H PRN (Reason: bronchospasm) 10 Days Qty: 75 0RF Continued latanoprost 0.005 % drops 1 drp OPB HS metformin 500 mg tablet See Rx Instructions .ROUTE .COMPLEX Rx Instructions: TAKES 500 MG QAM, THEN 1000 MG QPM. carvedilol 12.5 mg tablet 12.5 mg PO BIDM atorvastatin 10 mg tablet 10 mg PO HS potassium chloride 10 mEq tablet extended release 10 meq PO BID aspirin 81 mg Tablet,Delayed Release (Dr/Ec) 81 mg PO QAM omeprazole 20 mg capsule,delayed release(DR/EC) 20 mg PO QAM dorzolamide-timolol 22.3-6.8 mg/mL drops 1 drp OPB BID hydrochlorothiazide 25 mg tablet 25 mg PO QAM losartan 100 mg tablet 100 mg PO HS escitalopram oxalate 10 mg tablet 10 mg PO QAM calcium carbonate-vitamin D3 [Calcium 600 + D(3)] 600 mg-10 mcg (400 unit) Tablet 1 tab PO BID Prolia 60 mg/mL Syringe 60 mg SUBCUT .[id number] Discontinued diltiazem HCl 60 mg tablet 60 mg PO BID Discharge Orders: Discharge Order (Routine); Ordered 02/11/23 Ordered By: Arianna Steen Admission Data Admit Date/Time: 02/09/23 20:34 Attending Provider: Arianna Steen Admit Provider: Yecenia Meeks Primary Care Provider: PCP,NO Other Providers: Roberto Bolden Other Interventions: Discharge Summary Assessment (RN) Last Done: 02/11/23 11:15 C[place] [address] INP/OBS DISCH >30 MIN Patient Type Established Diagnoses Pulmonary vascular congestion R09.89
--- NOTE | 2023-02-15 13:43 | Coding Query ---
To promote full compliance with coding requirements relating to patient care, provider participation is requested in all cases of outer diameter grinder tool uncertainty. Please assist us with the question(s) below: Coding Question(s): The diagnosis(es) below was documented in the H&P then subsequently fell off all further documentation. Please indicate if it is still a possible diagnosis or ruled out. 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
== END 2023-02-11 12:20 | disposition home or self-care (01) | DRG 291 ==
LOC: ED 16:15 → SUATTDRO 20:34 → 2N 20:34 → 2E 23:47